=== PATIENT | female | born 1980 | race Caucasian/White ===

== ENCOUNTER 2017-02-08 17:05 | Observation (INO) | payer OTHER ==
[2017-02-08] MEDS ORDERED: Morphine INJ* 2 MG/ML 1 ML SYRINGE IV ONE (20:36)
[2017-02-08] MEDS ORDERED: NS 0.9% 1000 ML* 1,000 ML IV ONE (20:36)
[2017-02-08 21:15] LABS: Hematocrit 37 % (35-47); Hemoglobin 12.1 g/dl (12.0-16.0); Mean Corpuscular HGB Conc 33 g/dl (31-36); Mean Corpuscular Hemoglobin 28 pg (27-31); Mean Corpuscular Volume 84 fL (80-97); Mean Platelet Volume 9 um3 (7.4-10.4); Red Cell Distribution Width 14 % (10.5-15); White Blood Count 19.5 10^3/ul (3.5-10.8)
--- NOTE | 2017-02-08 21:23 | ED ---
Ozzy Foy Matthew, scribed for Abhilash Thomas MD on 02/08/17 at 2026 . Abdominal Pain/Female - HPI Summary HPI Summary: A 36 y/o female presents to the ED with intermittent diffuse abdominal pain since a few months, which worsened yesterday and became constant. The pain is rated 5/5 in severity and described as sharp. The patient was sent by [facility] to r/o appendicitis. Associated symptoms include subjective fever. The patient denies nausea, vomiting, diarrhea, and dysuria. The pain worsens with PO intake. She was never evaluated for the intermittent abdominal pain. LNMP at the beginning of the month. - History of Current Complaint Chief Complaint: EDAbdPain Stated Complaint: ABD PAIN Time Seen by Provider: 02/08/17 20:20 Hx Obtained From: Patient ?: No Onset/Duration: Gradual Onset, Lasting Hours, Still Present Timing: Constant Severity Initially: Moderate Severity Currently: Moderate Pain Intensity: 5 Pain Scale Used: 0-10 Numeric Location: Diffuse - upper abdominal Radiates: No Character: Sharp Aggravating Factor(s): Food Alleviating Factor(s): Nothing Associated Signs and Symptoms: Positive: Fever. Negative: Nausea, Vomiting, Diarrhea Allergies/Adverse Reactions: Allergies Allergy/AdvReac Type Severity Reaction Status Date / Time No Known Allergies Allergy Verified 01/26/13 12:23 PMH/Surg Hx/FS Hx/Imm Hx Endocrine/Hematology History: Denies: Hx Diabetes, Hx Systemic Lupus Erythematosus Cardiovascular History: Denies: Hx Congestive Heart Failure, Hx Hypertension History: Denies: Hx Dialysis, Hx Renal Disease Musculoskeletal History: Denies: Hx Rheumatoid Arthritis - Cancer History Hx Chemotherapy: No - Surgical History Surgery Procedure, Year, and Place: c -section 2006 Infectious Disease History: No Infectious Disease History: Denies: Traveled Outside the [place] in Last 30 Days - Family History Known Family History: Positive: Cardiac Disease Family History: FHx of appendicitis - Social History Alcohol Use: None Substance Use Type: Reports: None Smoking Status (MU): Never Smoked Tobacco Review of Systems Positive: Fever Eyes: Negative ENT: Negative Cardiovascular: Negative Respiratory: Negative Positive: Abdominal Pain - diffuse upper abdominal pain. Negative: Vomiting, Diarrhea, Nausea Genitourinary: Negative Musculoskeletal: Negative Skin: Negative Neurological: Negative Psychological: Normal All Other Systems Reviewed And Are Negative: Yes Physical Exam Triage Information Reviewed: Yes Vital Signs On Initial Exam: Initial Vitals Temp Pulse Resp BP 98.3 F 68 18 126/60 02/08/17 17:12 02/08/17 17:12 02/08/17 17:12 02/08/17 17:12 Vital Signs Reviewed: Yes Appearance: Positive: Well-Appearing, Pain Distress - MODErate discomfort Skin: Positive: Warm Head/Face: Positive: Normal Head/Face Inspection Eyes: Positive: AARON ENT: Positive: Hearing grossly normal Neck: Positive: Supple Respiratory/Lung Sounds: Positive: Breath Sounds Present Cardiovascular: Positive: RRR Abdomen Description: Positive: Soft, Guarding, [place] Tenderness. Negative: Distended Bowel Sounds: Positive: Present Musculoskeletal: Positive: Strength/ROM Intact Neurological: Positive: Alert, Oriented to Person Place, Time Psychiatric: Positive: Affect/Mood Appropriate Diagnostics - Vital Signs Vital Signs Temp Pulse Resp BP Pulse Ox 02/08/17 19:34 100.1 F 82 16 133/67 100 02/08/17 18:12 98.9 F 80 18 124/65 99 02/08/17 17:12 98.3 F 68 18 126/60 - Laboratory Lab Results: Lab Results 02/08/17 Range/Units 21:00 WBC 19.5 H (3.5-10.8) 10^3/ul RBC 4.40 (4.0-5.4) 10^6/ul Hgb 12.1 (12.0-16.0) g/dl Hct 37 (35-47) % MCV 84 (80-97) fL MCH 28 (27-31) pg MCHC 33 (31-36) g/dl RDW 14 (10.5-15) % Plt Count 318 (150-450) 10^3/ul MPV 9 (7.4-10.4) um3 Neut % (Auto) 77.7 (38-83) % Lymph % (Auto) 13.9 L (25-47) % [place] % (Auto) 7.5 (1-9) % Eos % (Auto) 0.7 (0-6) % Baso % (Auto) 0.2 (0-2) % Absolute Neuts (auto) 15.2 H (1.5-7.7) 10^3/ul Absolute Lymphs (auto) 2.7 (1.0-4.8) 10^3/ul Absolute Monos (auto) 1.5 H (0-0.8) 10^3/ul Absolute Eos (auto) 0.1 (0-0.6) 10^3/ul Absolute Basos (auto) 0 (0-0.2) 10^3/ul Absolute Nucleated RBC 0 10^3/ul Nucleated RBC % 0 Result Diagrams: 02/08/17 21:00 02/08/17 21:00 Lab Statement: Any lab studies that have been ordered have been reviewed, and results considered in the medical decision making process. - CT CT A/P CT Interpretation: Positive (See Comments) - IMPRESSION: FINDINGS MOST CONSISTENT WITH ACUTE APPENDICITIS. CT Interpretation Completed By: Radiologist Abdominal Pain Fem Course/Dx - Diagnoses Provider Diagnoses: Acute appendicitis - Provider Notifications Instructed by Provider To: Admit As Inpatient Discharge - Discharge Plan Condition: Fair Disposition: ADMITTED TO [facility] The documentation as recorded by the Ozzy rodriguez Matthew accurately reflects the service I personally performed and the decisions made by me, Abhilash Thomas MD.
[2017-02-08 21:48] LABS: ALT 11 U/L (7-52); AST 14 U/L (13-39); Albumin 3.8 g/dL (3.2-5.2); Alkaline Phosphatase 61 U/L (34-104); Anion Gap 8 mmol/L (2-11); BUN/Creatinine Ratio 11.4 (8-20); Blood Urea Nitrogen 10 mg/dL (6-24); C Reactive Protein 102.23 mg/L (< 5.00); CO2 Carbon Dioxide 26 mmol/L (22-32); Chloride 100 mmol/L (101-111); EGFR African American 93.5 (>60); EGFR Non-African American 72.7 (>60); Globulin 3.2 g/dL (2-4); Glucose 93 mg/dL (70-100); Lipase 17 U/L (11.0-82.0); Magnesium 1.8 mg/dL (1.9-2.7); Potassium 3.4 mmol/L (3.5-5.0); Sodium 134 mmol/L (133-145)
[2017-02-08 22:02] LABS: Urine Bilirubin Negative (Negative); Urine Glucose Negative (Negative); Urine Nitrite Negative (Negative)
[2017-02-08] MEDS ORDERED: Iohexol 300* (CONTRAST) 10 ML SDV IV ONE (22:06)
--- NOTE | 2017-02-08 22:25 | RAD ---
INDICATION: Abdominal pain. COMPARISON: Comparison is made with a prior CT of the abdomen and pelvis from January 26, 2013. TECHNIQUE: A CT scan of the abdomen and pelvis was performed with intravenous and oral contrast following intravenous injection of 101 ml of Omnipaque 300 nonionic contrast. Contiguous axial sections were obtained from the lung bases through the symphysis pubis. Images were reconstructed in the coronal and sagittal planes. FINDINGS: There is minimal atelectasis in the right lower lobe. No pleural effusion is present. The liver and spleen are within normal limits in size without significant focal abnormality. No calcified gallstones are seen. The pancreas appears to be within normal limits in size. The kidneys and adrenal glands are normal in size. No hydronephrosis is seen. No significant focal renal abnormality is seen. The aorta is normal in caliber and demonstrates homogeneous contrast opacification. No significant enlarged retroperitoneal lymph nodes are seen. The stomach, small and large bowel appear nondistended. There is a phlegmonous process in the right lower quadrant centered around a poorly defined tubular structure most consistent with a dilated appendix. There is prominent interstitial stranding around this structure and a small amount of adjacent free intraperitoneal fluid. There is also a small amount of free intraperitoneal fluid present dependently within the pelvis. No discrete abscess is seen. No free intraperitoneal air is present. These findings would be most consistent with acute appendicitis. The uterus is anteverted and normal in size. There is a T-shaped IUD present centrally within the uterus. No significant focal osseous abnormality is seen. IMPRESSION: FINDINGS MOST CONSISTENT WITH ACUTE APPENDICITIS.
--- NOTE | 2017-02-08 23:59 | HP ---
H&P (Free Text) History and Physical: Surgery H & P Asked by Dr. Thomas to evaluate a pt. with abd. pain and a CT suggestive of appendicitis. Ms. So is a 36 y.o. female who reports that last night she began to have general abdominal discomfort. This progressed and moved to the low abd. today. She has not had an appetite. She had a low grade fever today. She denies vomiting but has felt nauseated. She denies diarrhea, had some constipation. She denies dysuria. LMP 01/16/17. PMHx: none Meds: lexapro; OCP NKDA ROS: neg. SH: neg. tob., occ EtOH, neg. IVDA FH: denies. PE: general: WDWN female in NAD Vital Signs 02/08/17 02/08/17 02/08/17 17:12 18:12 19:34 Temperature 98.3 F 98.9 F 100.1 F Pulse Rate 68 80 82 Respiratory 18 18 16 Rate Blood Pressure 126/60 124/65 133/67 (mmHg) O2 Sat by Pulse 99 100 Oximetry 02/08/17 02/08/17 02/08/17 20:30 21:00 21:30 Temperature Pulse Rate 81 80 79 Respiratory 18 18 18 Rate Blood Pressure 140/63 126/64 112/72 (mmHg) O2 Sat by Pulse 99 99 97 Oximetry 02/08/17 02/08/17 02/08/17 21:32 22:00 23:18 Temperature Pulse Rate 80 Respiratory 20 18 Rate Blood Pressure 119/70 114/71 (mmHg) O2 Sat by Pulse 97 Oximetry 02/08/17 02/08/17 23:19 23:30 Temperature Pulse Rate 79 81 Respiratory Rate Blood Pressure 119/64 (mmHg) O2 Sat by Pulse 96 96 Oximetry HEENT: anicteric sclerae, dry oral mucosa, neg. cervical adenopathy lungs: clear to ausc. heart: reg. abd: good BS,soft, tender in RLQ with some tenderness referred from LLQ. Some guarding, no rebound. Neg. CVAT ext: neg. cyanosis, edema Laboratory Results - last 24 hr 02/08/17 02/08/17 02/08/17 21:00 21:00 21:00 WBC 19.5 H RBC 4.40 Hgb 12.1 Hct 37 MCV 84 MCH 28 MCHC 33 RDW 14 Plt Count 318 MPV 9 Neut % (Auto) 77.7 Lymph % (Auto) 13.9 L Phelps % (Auto) 7.5 Eos % (Auto) 0.7 Baso % (Auto) 0.2 Absolute Neuts (auto) 15.2 H Absolute Lymphs (auto) 2.7 Absolute Monos (auto) 1.5 H Absolute Eos (auto) 0.1 Absolute Basos (auto) 0 Absolute Nucleated RBC 0 Nucleated RBC % 0 Sodium 134 Potassium 3.4 L Chloride 100 L Carbon Dioxide 26 Anion Gap 8 BUN 10 Creatinine 0.88 Est GFR ( Amer) 93.5 Est GFR (Non-Af Amer) 72.7 BUN/Creatinine Ratio 11.4 Glucose 93 Lactic Acid 0.6 Calcium 9.0 Magnesium 1.8 L Total Bilirubin 1.00 AST 14 ALT 11 Alkaline Phosphatase 61 C-Reactive Protein 102.23 H Total Protein 7.0 Albumin 3.8 Globulin 3.2 Albumin/Globulin Ratio 1.2 Lipase 17 Beta HCG, Quant < 0.60 Urine Color Urine Appearance Urine pH Ur Specific [place] Urine Protein Urine Ketones Urine Blood Urine Nitrate Urine Bilirubin Urine Urobilinogen Ur Leukocyte Esterase Urine Glucose 02/08/17 21:40 WBC RBC Hgb Hct MCV MCH MCHC RDW Plt Count MPV Neut % (Auto) Lymph % (Auto) [place] % (Auto) Eos % (Auto) Baso % (Auto) Absolute Neuts (auto) Absolute Lymphs (auto) Absolute Monos (auto) Absolute Eos (auto) Absolute Basos (auto) Absolute Nucleated RBC Nucleated RBC % Sodium Potassium Chloride Carbon Dioxide Anion Gap BUN Creatinine Est GFR ( Amer) Est GFR (Non-Af Amer) BUN/Creatinine Ratio Glucose Lactic Acid Calcium Magnesium Total Bilirubin AST ALT Alkaline Phosphatase C-Reactive Protein Total Protein Albumin Globulin Albumin/Globulin Ratio Lipase Beta HCG, Quant Urine Color Yellow Urine Appearance Cloudy Urine pH 6.0 Ur Specific [place] 1.028 Urine Protein Negative Urine Ketones 1+ H Urine Blood Negative Urine Nitrate Negative Urine Bilirubin Negative Urine Urobilinogen Negative Ur Leukocyte Esterase Negative Urine Glucose Negative A/P: Probable appendicitis. Would like to proceed to OR for laparoscopic appendectomy. I have explained to her the nature of surgery, its risks, benefits, and alternatives. She understands and before agreeing, would like to consult with family.
--- NOTE | 2017-02-09 00:20 | PN ---
Progress Note - Progress Note Note: Surgery addendum to H &P Pt. has considered and agrees to surgery.
[2017-02-09] MEDS ORDERED: Bupivacaine 0.25% EPI 200,000* 30 ML SDV ONE (00:35)
[2017-02-09] MEDS ORDERED: ceFOXitin 2 GM IVPREMIX* 2 GM/50 ML BAG ONE (00:53)
[2017-02-09] MEDS ORDERED: Midazolam* 1 MG/ML 2 ML VIAL (2 MG) ONE (01:19)
[2017-02-09] MEDS ORDERED: fentaNYL* 50 MCG/ML 2 ML VIAL (100 MCG VIAL) ONE ×3 (01:19→03:35)
[2017-02-09] MEDS ORDERED: Dexamethasone IV* 4 MG/ML 1 ML (4 MG) ONE (01:31)
[2017-02-09] MEDS ORDERED: Lidocaine 2% PF * 5 ML VIAL ONE (01:31)
[2017-02-09] MEDS ORDERED: Succinylcholine* 20 MG/ML 10 ML VIAL ONE (01:31)
[2017-02-09] MEDS ORDERED: Ondansetron INJ* 2 MG/ML VIAL ONE (01:31)
[2017-02-09] MEDS ORDERED: Propofol* 10 MG/ML 20 ML BTL IV PUSH ONE (01:31)
[2017-02-09] MEDS ORDERED: Metoclopramide IV* 5 MG/ML 2 ML VIAL IV PRN (03:34)
[2017-02-09] MEDS ORDERED: Ketorolac INJ* 30 MG/ML 1 ML VIAL IV PRN (03:34)
[2017-02-09] MEDS ORDERED: Scopolamine 1.5 mg* PATCH TRANSDERM PRN (03:34)
[2017-02-09] MEDS ORDERED: HYDROmorphone* 1 MG/ML 1 ML SYR ONE (03:35)
[2017-02-09] MEDS ORDERED: Ketorolac INJ* 30 MG/ML 1 ML VIAL ONE (03:35)
[2017-02-09] MEDS: fentaNYL* 50 MCG/ML 2 ML VIAL (100 MCG VIAL) IV PRN ×2 (03:39→03:49)
[2017-02-09] MEDS: HYDROmorphone* 1 MG/ML 1 ML SYR IV PRN ×3 (03:41→04:00)
--- NOTE | 2017-02-09 04:04 | SURGPN ---
Brief Operative Note - Surgery Procedures: 02/09/17 Op Note Pre-op dx: appendicitis Post-op dx: Same Procedure: laparoscopic appendectomy Surgeon: Jeffy Asst: none Anesth: GET EBL: 10 cc Complications: none SCDs on during surgery Abx: given pre-op Pt. tolerated procedure well and was transferred to in a stable condition. CLFoster
[2017-02-09] MEDS ORDERED: oxyCODONE/Acetamin 5/325 MG* TAB ONE (07:56)
[2017-02-09] MEDS ORDERED: Morphine ORAL.SOLN 10 mg* 2 MG/ML UDC 5 ml PO PRN (08:15)
[2017-02-09] MEDS ORDERED: oxyCODONE/Acetamin 5/325 MG* TAB PO PRN ×2 (08:16→08:17)
[2017-02-09] MEDS ORDERED: Ondansetron INJ* 2 MG/ML VIAL IV PRN (08:17)
[2017-02-09] MEDS: ceFOXitin(*) 1 GM in NS 0.9% 50 ML* 50 ML IVPB SCH ×3 (09:13→21:07)
[2017-02-09] MEDS: Ibuprofen TAB* 600 MG PO PRN ×2 (13:38→21:07)
--- NOTE | 2017-02-09 16:44 | PN ---
Progress Note - Progress Note Note: Surgery Ms. So reports she feels better. She has questions about return to work and activities. Will check CBC in AM and continue ivabx for now. If WBC normalizing will consider d/c on oral abx tomorrow. CLFoster
--- NOTE | 2017-02-09 21:25 | OP ---
DATE OF OPERATION: 02/09/17 - ROOM #341 DATE OF : 80 SURGEON: Mary Ann Bardales MD ASSISTANTS: There was no cosmetic sales assistant for this case. ANESTHESIOLOGIST: Chelsey Stephenson MD ANESTHESIA: General PRE-OP DIAGNOSIS: Appendicitis. POST-OP DIAGNOSIS: Appendicitis. OPERATIVE PROCEDURE: Laparoscopic appendectomy. INDICATIONS: This is a 36-year-old woman who presented to the emergency room with signs and symptoms consistent with appendicitis prompting the plan for surgical intervention, also it should be mentioned she had a CAT scan consistent with appendicitis. DESCRIPTION OF PROCEDURE: She was brought to the operating room and placed on the OR table in a supine position and given general anesthesia. The abdomen was prepped and draped in the usual sterile fashion. After infiltrating with local anesthetic, an incision was made in the infraumbilical area and subcutaneous tissue was divided bluntly. The fascia was grasped and incised and a 0 Biosyn stitch was placed on either side of the fascial incision. A trocar was inserted into the abdomen and the abdomen was insufflated, then under direct visualization, a left lower quadrant port and a left upper quadrant port were placed after infiltrating with local anesthetic. These ports were placed as described due to adhesions in the pelvis of omentum to anterior abdominal wall and adhesions of the uterus to other intraabdominal structures. Once the left lower quadrant port was placed, some of the adhesions around the umbilical were taken down. This allowed more free passage of instruments to the right lower quadrant. Here, the terminal ileum was noted to be very densely adherent to a structure that was consistent with an inflamed indurated fibrinopurulent appendix with some significant difficulty. The terminal ileum was dissected free from the appendix. This process was made difficult by the fibrotic nature and distended nature of the appendix; however, ultimately the terminal was freed up and the fibrotic mesoappendix was cleared from the base of the appendix using primarily blunt dissection and then an Endo NOY stapler was fired across the base of the mesoappendix. A second fire was fired across what appeared to be the base of the appendix, neither of these firings completed the division of the either of the mesoappendix or the base of the appendix, so additional firings were required in both locations. The appendix once it was freed, it was placed in an Endo Catch bag and withdrawn from the abdomen through the infraumbilical port site. This was difficult due to the size of the indurated appendix and the incision had to be made a little larger. Once the appendix was handed off, a brief inspection of the rest of the abdomen was undertaken. The small and large intestine that were visualized appeared normal. The liver and gallbladder appeared normal. The uterus as mentioned was adherent to the anterior abdominal wall into the other structures , but otherwise appeared normal. The right and left ovaries were not visualized. Adhesions that were noted to be quite dense in the right lower quadrant were taken down using blunt and electrocautery dissection so as to reduce the chance of torsion around the adhesion. Then, the ports were withdrawn under direct visualization. An additional 0 Biosyn was required to complete the closure of the infraumbilical port site and then 4-0 Biosyn was used to close the skin of all incisions. Steri-Strips were applied. All sponge and instrument counts were correct. The patient tolerated the procedure well and was transferred to recovery in a stable condition. CC: [facility]; Cleo Blue MD* [id number]/[facility] #: [id number] TORO
[2017-02-10] MEDS: ceFOXitin(*) 1 GM in NS 0.9% 50 ML* 50 ML IVPB SCH ×2 (03:06→09:26)
[2017-02-10 05:50] LABS: Hematocrit 31 % (35-47); Hemoglobin 10.2 g/dl (12.0-16.0); Mean Corpuscular HGB Conc 33 g/dl (31-36); Mean Corpuscular Hemoglobin 28 pg (27-31); Mean Corpuscular Volume 85 fL (80-97); Mean Platelet Volume 9 um3 (7.4-10.4); Red Blood Count 3.65 10^6/ul (4.0-5.4); Red Cell Distribution Width 14 % (10.5-15); White Blood Count 11.7 10^3/ul (3.5-10.8)
[2017-02-10] MEDS: Ibuprofen TAB* 600 MG PO PRN (08:07)
--- NOTE | 2017-02-10 09:52 | PN ---
Progress Note - Progress Note Note: Surgery Progress: S: POD #1. Doing well. Pain controlled w/ Ibuprofen. Dwihgt diet. O: Vital Signs - 8 hr 02/10/17 02/10/17 03:46 07:19 Temperature 98.2 F 98.0 F Pulse Rate 54 61 Respiratory 16 16 Rate Blood Pressure 97/54 93/55 (mmHg) O2 Sat by Pulse 98 97 Oximetry Intake and Output Last 24 Hours 02/08/17 02/09/17 02/10/17 02/11/17 06:59 06:59 06:59 06:59 Intake Total 2150 1539 Output Total 0 Balance 2150 1539 Weight 168 lb Intake: IV Fluids 2150 366 ABX - CEFOXITIN 201 NS 50ML, Cefoxitin 2G 50 lr 1100 IVPB 123 ABX - CEFOXITIN 70 Oral 1050 Output: Urine 0 Other: Estimated Void Medium Medium Estimated Blood Loss min Comment # Voids 3 Heart: reg Lungs: few wheezes Abd: lap incisions ok; no s/sx of infection; soft, mild tenderness A/P: s/p lap appy, doing well; ok for d/c home on Augmentin; instructions reviewed.
[2017-02-10 12:10] VITALS: BP 87/56
--- NOTE | 2017-02-11 01:17 | DS ---
DISCHARGE SUMMARY: DATE OF ADMISSION: 02/08/17 DATE OF DISCHARGE: 02/10/17 ATTENDING SURGEON: Dr. Mary Ann Bardales. (DICTATED BY COREY ALFARO) HOSPITAL COURSE: Please refer to admission history and physical for admission details. The patient was taken to the operating room early in the morning of at which time, she underwent a laparoscopy appendectomy with Dr. Bardales ( see operative note for details). She has had an otherwise uneventful postoperative course with tolerance of diet and controlled pain with oral analgesics as of the morning. PHYSICAL EXAMINATION: Temperature 98, blood pressure 93/55, pulse 61, respirations 16, room air saturation 97%. General: Well nourished and in no acute distress. Heart: Regular rate and rhythm. Lungs: Clear to auscultation with few wheezes anteriorly. Abdomen: Laparoscopic incision site clean with no evidence of infection. Abdomen is soft with mild tenderness as expected. IMPRESSION: Status post laparoscopic appendectomy for acute appendicitis, doing well. PLAN: Home today on Augmentin 875 mg b.i.d. x1 week. Instructions were reviewed regarding wound care, diet, and activity. Followup scheduled with our office on 02/17/17. COREY ALFARO CC: [facility] * [id number]/[facility] #: [id number] MTDD
== END 2017-02-10 13:45 | disposition home or self-care (01) ==
LOC: ED 17:05 → OR 02-09 00:28 → SSU 02-09 04:45
PROVIDERS: ADMIT Surgery; ATTEND Surgery
DX: K35.80 Unspecified acute appendicitis (principal)
CPT/HCPCS: 36415; 74177; 80053; 81003; 83605; 83690; 83735; 84702; 85025; 86140; 88304; 96374; 99283; A9270-GY; G0378; J0330; J0694; J1100; J1170; J1885; J2250; J2270; J2405; J2704; J3010; Q9967

== ENCOUNTER 2017-09-23 00:21 | Emergency (ER) | payer OTHER ==
[2017-09-23] MEDS ORDERED: diPHENhydraMINE IV* 50 MG/ML 1 ml VIAL (BENADRYL) IV ONE (01:20)
[2017-09-23] MEDS ORDERED: NS 0.9% 1000 ML* 1,000 ML IV ONE (01:20)
[2017-09-23] MEDS ORDERED: Ketorolac INJ* 30 MG/ML 1 ML VIAL IV ONE (01:20)
[2017-09-23] MEDS ORDERED: Dexamethasone IV* 4 MG/ML 1 ML (4 MG) IV SLOW PU ONE (01:23)
[2017-09-23] MEDS ORDERED: Fluorescein Sodium TOPICAL* 1 MG TEST OPHTHALMIC ONE (01:24)
[2017-09-23] MEDS ORDERED: Fluorescein Sodium TOPICAL* 1 MG TEST ONE (01:25)
[2017-09-23] MEDS ORDERED: Tetracaine 0.5% OPTH.SOL 15ML* BTL ONE (01:26)
[2017-09-23] MEDS ORDERED: Tetracaine 0.5% OPTH.SOL 4 ML* 1 DROP BTL ONE (01:29)
[2017-09-23] MEDS ORDERED: Tetracaine 0.5% OPTH.SOL 4 ML* 1 DROP BTL LEFT EYE SCH (01:30)
[2017-09-23] MEDS ORDERED: Tetracaine 0.5% OPTH.SOL 4 ML* 1 DROP BTL LEFT EYE ONE (01:30)
[2017-09-23 02:18] LABS: Hematocrit 39 % (35-47); Hemoglobin 13.2 g/dl (12.0-16.0); Mean Corpuscular HGB Conc 34 g/dl (31-36); Mean Corpuscular Hemoglobin 29 pg (27-31); Mean Corpuscular Volume 86 fL (80-97); Mean Platelet Volume 9 um3 (7.4-10.4); Red Blood Count 4.53 10^6/ul (4.0-5.4); Red Cell Distribution Width 14 % (10.5-15); White Blood Count 11.3 10^3/ul (3.5-10.8)
[2017-09-23 02:20] LABS: Urine Bilirubin Negative (Negative); Urine Glucose Negative (Negative); Urine Nitrite Negative (Negative)
[2017-09-23 02:40] LABS: ALT 11 U/L (7-52); AST 17 U/L (13-39); Albumin 4.4 g/dL (3.2-5.2); Alkaline Phosphatase 52 U/L (34-104); Anion Gap 6 mmol/L (2-11); BUN/Creatinine Ratio 21.4 (8-20); Blood Urea Nitrogen 18 mg/dL (6-24); CO2 Carbon Dioxide 25 mmol/L (22-32); Chloride 105 mmol/L (101-111); EGFR African American 98.1 (>60); EGFR Non-African American 76.3 (>60); Globulin 2.9 g/dL (2-4); Glucose 97 mg/dL (70-100); Potassium 3.6 mmol/L (3.5-5.0); Sodium 136 mmol/L (133-145); Total Protein 7.3 g/dL (6.4-8.9)
[2017-09-23] MEDS ORDERED: Iohexol 350* (CONTRAST) 500 ML MDV IV ONE (02:59)
[2017-09-23 06:17] VITALS: BP 103/60
--- NOTE | 2017-09-23 08:05 | RAD ---
HISTORY: Left-sided headache COMPARISONS: None TECHNIQUE: Multiple contiguous axial CT scans were obtained of the face without intravenous contrast, with coronal and sagittal multiplanar reformations. FINDINGS: BONES: There is no displaced fracture or dislocation. The orbital rim is intact. The zygomatic arch is intact. The pterygoid plates are intact. ORBITS: The globes are round. The optic nerves are symmetric. The extraocular musculature is normal. There is no post septal or intraconal inflammatory change. There is no retrobulbar hematoma. PARANASAL SINUSES: The paranasal sinuses are clear. BRAIN AND SOFT TISSUE: Unremarkable. OTHER: The cavernous sinuses are not well evaluated on noncontrast CT, progressive normal. The superior ophthalmic veins are symmetric and normal in size. IMPRESSION: UNREMARKABLE NONCONTRAST CT OF THE FACE
--- NOTE | 2017-09-23 08:33 | RAD ---
CPT II: CPT II Codes: 3100F INDICATION: Positional headache COMPARISON: Same day noncontrast CT of the maxillofacial bones that did not reveal any acute abnormalities TECHNIQUE: Prior to CTA imaging, a CT of the brain was acquired from the vertex to the skull base. A CT angiogram of the head and neck was performed with 80 cc of Omnipaque 350. Contiguous axial sections were obtained from the thoracic inlet through the [place]. Images were reconstructed in the sagittal, coronal planes and in a 3-D volume rendered format. The distal cervical internal carotid artery diameter is used as the denominater for stenosis measurement. CTA NECK: The common and internal carotid arteries are patent without hemodynamically significant stenosis. Right: Below the bifurcation the common carotid artery measures 6 mm in diameter and the internal carotid artery measures 6 mm in diameter at its proximal most portion. This yields 0% degree stenosis. Left: Below the bifurcation the left common carotid artery measures just under 6 mm in diameter and the inferior most left internal carotid artery measures just under 6 mm in diameter. This yields 0% degree stenosis. The vertebral arteries are patent without gross abnormality. CTA of the brain: The internal carotid, anterior and middle cerebral arteries appear are patent without high grade stenosis or occlusion. The vertebral, basilar and posterior cerebral arteries appear patent without high grade stenosis or occlusion. The [place] is complete with bilateral posterior communicating arteries identified. No focal luminal filling defect, aneurysm or vascular malformation is seen. IMPRESSION: Normal CT angiography of the head and neck.
--- NOTE | 2017-09-29 17:21 | ED ---
Bonita Foy Alfonso, scribed for Gianni Gore MD on 09/23/17 at 0240 . Headache - HPI Summary HPI Summary: This patient is a 37 year old F BIBA to [facility] with a chief complaint of intermittent sharp/stabbing left-sided headaches since a flight home from [place] on 09/15/17, worse since a few hours ago. She reports the headache is usually left frontal, but has radiated to regions including left occipital. The patient rates the pain 10/10 in severity. Symptoms aggravated by position change. Symptoms alleviated by nothing. Symptoms not alleviated by Advil and fioricet (prescribed by SALES CONSULTANT and taken 3 times today). Patient reports bilateral shoulder tenseness. Patient denies vision issue. Patient denies recent sick contacts. - History Of Current Complaint Chief Complaint: EDHeadache Stated Complaint: HEADACHE Hx Obtained From: Patient Onset/Duration: Gradual Onset, Started days ago, Still Present Currently Pain Is: Current Pain Scale(0-10)= - 10/10 Timing: Intermittent, Lasting: Aggravating Factor: Position Change Allevating Factors: Nothing Associated Signs And Symptoms: Other (Noted In Comments) - bilateral shoulder tenseness. Patient denies vision issue. - Allergies/Home Medications Allergies/Adverse Reactions: Allergies Allergy/AdvReac Type Severity Reaction Status Date / Time No Known Allergies Allergy Verified 02/09/17 01:05 PMH/Surg Hx/FS Hx/Imm Hx Endocrine/Hematology History: Denies: Hx Diabetes, Hx Systemic Lupus Erythematosus Cardiovascular History: Denies: Hx Congestive Heart Failure, Hx Hypertension History: Denies: Hx Dialysis, Hx Renal Disease Musculoskeletal History: Denies: Hx Rheumatoid Arthritis Opthamlomology History: Denies: Hx Legally Blind EENT History: Denies: Hx Deafness - Cancer History Hx Chemotherapy: No - Surgical History Surgery Procedure, Year, and Place: c -section 2007 Infectious Disease History: No Infectious Disease History: Reports: Traveled Outside the [place] in Last 30 Days - [place] - Family History Known Family History: Positive: Cardiac Disease Family History: FHx of appendicitis - Social History Alcohol Use: None Hx Substance Use: No Substance Use Type: Reports: None Hx Tobacco Use: No Smoking Status (MU): Never Smoked Tobacco Review of Systems Negative: Fever Positive: Other - Negative vision issue Positive: Other - bilateral shoulder tenseness. Positive: Headache All Other Systems Reviewed And Are Negative: Yes Physical Exam - Summary Physical Exam Summary: Appearance: Well-appearing, Well-nourished Skin: Warm, No rash or petechiae. Eyes: Left injected conjunctiva. Fluorescein exam shows no uptake, no Pushpa's sign, no pseudodendritic appearance ENT: Normal Neck: Supple, nontender, FROM Respiratory: Clear to auscultation Cardiovascular: Normal Abdomen: Soft, nontender Bowel: Present Musculoskeletal: Normal, Strength/ROM Intact Neurological: Normal, A&Ox3, Negative Kernig's and Brudzinski's sign. Normal sensations in all extremities. Psychiatric: Normal Triage Information Reviewed: Yes Vital Signs On Initial Exam: Initial Vitals Temp Pulse Resp BP Pulse Ox 98.3 F 75 16 109/72 98 09/23/17 00:29 09/23/17 00:29 09/23/17 00:29 09/23/17 00:29 09/23/17 00:29 Vital Signs Reviewed: Yes Diagnostics - Vital Signs Vital Signs Temp Pulse Resp BP Pulse Ox 09/23/17 00:29 98.3 F 75 16 109/72 98 - Laboratory Lab Results: Lab Results 09/23/17 09/23/17 Range/Units 01:58 01:58 WBC 11.3 H (3.5-10.8) 10^3/ul RBC 4.53 (4.0-5.4) 10^6/ul Hgb 13.2 (12.0-16.0) g/dl Hct 39 (35-47) % MCV 86 (80-97) fL MCH 29 (27-31) pg MCHC 34 (31-36) g/dl RDW 14 (10.5-15) % Plt Count 327 (150-450) 10^3/ul MPV 9 (7.4-10.4) um3 Neut % (Auto) 66.5 (38-83) % Lymph % (Auto) 22.3 L (25-47) % [place] % (Auto) 8.7 (1-9) % Eos % (Auto) 1.9 (0-6) % Baso % (Auto) 0.6 (0-2) % Absolute Neuts (auto) 7.5 (1.5-7.7) 10^3/ul Absolute Lymphs (auto) 2.5 (1.0-4.8) 10^3/ul Absolute Monos (auto) 1.0 H (0-0.8) 10^3/ul Absolute Eos (auto) 0.2 (0-0.6) 10^3/ul Absolute Basos (auto) 0.1 (0-0.2) 10^3/ul Absolute Nucleated RBC 0 10^3/ul Nucleated RBC % 0 Urine Color Yellow Urine Appearance Cloudy Urine pH 5.0 (5-9) Ur Specific [place] 1.026 (1.010-1.030) Urine Protein Negative (Negative) Urine Ketones Negative (Negative) Urine Blood Negative (Negative) Urine Nitrate Negative (Negative) Urine Bilirubin Negative (Negative) Urine Urobilinogen Negative (Negative) Ur Leukocyte Esterase Negative (Negative) Urine Glucose Negative (Negative) Result Diagrams: 09/23/17 01:58 09/23/17 01:58 Lab Statement: Any lab studies that have been ordered have been reviewed, and results considered in the medical decision making process. - CT Maxillofacial CT Interpretation Completed By: Radiologist - unremarkable noncontrast CT appernace of cavernous sinus. Essentially clear visualized paranasal sinuses. Middle ear cavities and visualized mastoid air. ED physician has reviewed this radiology report and agrees. CTA head/neck CT Interpretation Completed By: Radiologist - normal CT Brain, normal CTA Brain , normal CTA neck. ED physician has reviewed this radiology report and agrees. Headache Course/Dx - Diagnoses Provider Diagnoses: Headache Discharge - Discharge Plan Condition: Improved Disposition: HOME Prescriptions: predniSONE TAB* [Deltasone TAB*] 50 mg PO DAILY PRN #6 tab PRN Reason: Pain - Moderate To Severe Patient Education Materials: Acute Headache (ED) Referrals: Kevin Kaufman MD [Primary Care Provider] - Gerber Chavira MD [Medical Doctor] - Additional Instructions: PLEASE MAKE AN APPOINTMENT FIRST THING IN THE MORNING TO BE SEEN BY A NEUROLOGIST WITHIN 1 WEEK PLEASE RETURN TO THE EMERGENCY ROOM IF YOU HAVE ANY WORSENING OR CONCERNING SYMPTOMS PLEASE MAKE AN APPOINTMENT FIRST THING IN THE MORNING TO BE SEEN BY YOUR PRIMARY CARE DOCTOR WITHIN 1 WEEK The documentation as recorded by the Bonita rodriguez Alfonso accurately reflects the service I personally performed and the decisions made by me, Gianni Gore MD.
== END 2017-09-23 09:38 | disposition home or self-care (01) ==
LOC: ED 00:21
DX: R51 Headache (principal)
CPT/HCPCS: 36415; 70486; 70496; 70498; 80053; 81003; 84702; 85025; 96374; 96375; 99283; A9270-GY; J1100; J1200; J1885; Q9967